=== PATIENT | male | born 1985 | race Caucasian/White ===

== ENCOUNTER 2016-12-28 16:55 | Emergency (ER) | payer MEDICAID ==
[~2016-12-28] VITALS: Ht 172.7 cm; Wt 75.0 kg
[2016-12-28 17:15] VITALS: Ht 172.7 cm; Wt 75.0 kg
[2016-12-28] MEDS ORDERED: HYDROCODONE/APAP (5/325) TAB PO ONE (19:30)
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
[2016-12-28] MEDS ORDERED: HYDR-906 PO (20:21)
[2016-12-28] MEDS ORDERED: IBUP-1542 PO (20:21)
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
== END 2016-12-28 20:33 | disposition home or self-care (01) ==
LOC: FTE 16:55
DX: S93.401A Sprain of unspecified ligament of right ankle, initial encounter (principal); X58.XXXA Exposure to other specified factors, initial encounter; Y92.9 Unspecified place or not applicable
CPT/HCPCS: 73610; Z7502; Z7610

== ENCOUNTER 2017-02-19 08:28 | Emergency (ER) | payer MEDICAID ==
[~2017-02-19] VITALS: Wt 91.5 kg
[~2017-02-19 08:28] MED LIST: HYDR-906 PO; IBUP-1542 PO
[2017-02-19] MEDS ORDERED: BENZ100C70 PO (09:15)
[2017-02-19] MEDS ORDERED: NASO17 NASAL (09:15)
[2017-02-19] MEDS ORDERED: CETI10CA PO (09:15)
[2017-02-19] MEDS ORDERED: IBUP-1542 PO (09:15)
[2017-02-19] MEDS ORDERED: ACETAMINOPHEN 325 MG TAB PO ONE (09:30)
[2017-02-19] MEDS ORDERED: IBUPROFEN 600 MG TAB PO ONE (09:30)
--- NOTE | 2017-02-19 09:31 | ERD ---
ER Documentation Chief Complaint Chief Complaint COUGH, CONGESTION, HEADACHE, FEVER AT HOME HPI 31-year-old male otherwise healthy comes in with a cough, congestion, frontal headache and diarrhea for the past 1 day. Patient describes a frontal headache that is achy, dry cough without any mucus production and nasal rhinorrhea. He reports body aches on his arms and legs but diffusely. Denies chest pain, shortness breath, hemoptysis. Patient denies history of recent travel. ROS All systems reviewed and are negative except as per history of present illness. Medications Home Meds Active Scripts Mometasone Furoate* (Nasonex*) 50 Mcg/[place] - 17 Gm [place].pump, 1 SPRAY NASAL BID, #1 BOTTLE IN EACH NOSTRIL Prov:LOVELY TAPIA PA-C 02/19/17 Cetirizine Hcl* (Zyrtec*) 10 Mg Capsule, 10 MG PO DAILY, #10 TAB.CHEW Prov:LOVELY TAPIA PA-C 02/19/17 Benzonatate* (Tessalon Perle*) 100 Mg Capsule, 100 MG PO Q8H Y for COUGH, #30 CAP Prov:LOVELY TAPIA PA-C 02/19/17 Ibuprofen* (Motrin*) 600 Mg Tab, 600 MG PO Q6, #30 TAB Prov:LOVELY TAPIA PA-C 02/19/17 Hydrocodone/Acetaminophen ([place] 5-325 Tablet) 1 Each Tablet, 1 TAB PO Q6H Y for SEVERE PAIN LEVEL 7-10, #20 TAB Prov:NYASIA ANTONIO NP 12/28/16 Ibuprofen* (Motrin*) 600 Mg Tab, 600 MG PO Q6H Y for PAIN AND OR ELEVATED TEMP, #30 TAB Prov:NYASIA ANTONIO NP 12/28/16 Reported Medications [none] Unknown Strength No Conflict Check 12/28/16 Allergies Allergies: Coded Allergies: No Known Allergy (Unverified , 02/19/17) PMhx/Soc History of Surgery: Yes (Api X20 yrs ago, R ankle ) Anesthesia Reaction: No Hx Respiratory Disorders: No Hx Cardiac Disorders: No Hx Psychiatric Problems: No Hx Miscellaneous Medical Probl: No Hx Alcohol Use: Yes (light drinker) Hx Substance Use: No Hx Tobacco Use: No Physical Exam Vitals Vital Signs Date Time Temp Pulse Resp B/P Pulse Ox O2 Delivery O2 Flow Rate FiO2 12/22/17 08:33 100.7 103 18 154/84 98 Physical Exam General: Well-developed, well-nourished. The patient appears in no acute distress. HEENT: Head is normocephalic, atraumatic. No scleral icterus. TMs are normal, oropharynx is clear. Neck: Supple. Nontender. Tender cervical anterior chain lymphadenopathy, no masses. Lungs: Clear to auscultation. Normal air movement. Heart: Regular rate and rhythm. S1 and S2 are normal. No murmurs, gallops, or rubs. Abdomen: Nondistended. Extremities: No clubbing or cyanosis. Moving extremities x 4. No weakness. Neurologic: Alert and oriented 3. No focal deficits. Normal speech and gait. Skin: Normal turgor. No rash or lesions. Results 24 hrs Current Medications Medications (Trade) Dose Ordered Sig/[place] Route PRN Reason Start Time Stop Time Status Last Admin Dose Admin Ibuprofen (Motrin) 600 mg ONCE ONCE PO 02/19/17 09:30 02/19/17 09:31 02/19/17 09:20 Acetaminophen (Tylenol Tab) 650 mg ONCE ONCE PO 02/19/17 09:30 02/19/17 09:31 02/19/17 09:20 Procedures/MDM The patient is a 31-year-old male who comes in with an acute upper respiratory infection, presumed viral. The patient has a differential diagnosis of a viral upper respiratory infection, bacterial upper respiratory infection, bronchitis, pneumonia, pharyngitis, laryngitis, epiglottitis, croup, pneumonia. Patient has a normal pulmonary examination, clear breath sounds, normal pulse oximetry, with no corrective measures needed at this time. Fluids, rest, antipyretics were encouraged. Departure Diagnosis: Primary Impression: Upper respiratory infection Condition: Good Patient Instructions: Uri, Viral, No Abx (Adult) LOVELY TAPIA PA-C Feb 19, 2017 09:31
[2017-02-19 09:38] VITALS: TEMP 98.2
== END 2017-02-19 09:41 | disposition home or self-care (01) ==
LOC: FTE 08:28
DX: J06.9 Acute upper respiratory infection, unspecified (principal)
CPT/HCPCS: Z7502; Z7610; 99283